=== PATIENT | male | born 1990 | race Caucasian/White ===

== ENCOUNTER 2017-08-26 12:20 | Emergency (ER) | payer OTHER ==
[2017-08-26] MEDS ORDERED: NS 0.9% 1000 ML* 1,000 ML IV ONE (12:56)
[2017-08-26] MEDS ORDERED: Ketorolac INJ* 30 MG/ML 1 ML VIAL IV PUSH ONE (12:57)
--- NOTE | 2017-08-26 14:03 | ED ---
GI/ HPI - HPI Summary HPI Summary: 27M presents with flank pain since Wednesday. He states the pain is over bilateral kidney. He admits to occasionally nausea and decrease in appetite. He denies any injury. He denies any fever. He denies any loss of bowel or bladder. He denies any saddle anaesthesia. He states on right side pain radiates to RUQ. He denies any vomiting, diarrhea or constipation. He has been taking tyenlol for pain. He denies any history of kidney stones. He saw his primary who scheduled an u/s in a month. - History of Current Complaint Chief Complaint: EDFlankPain Time Seen by Provider: 08/26/17 12:41 Stated Complaint: KIDNEY PAIN Pain Intensity: 8 - Allergy/Home Medications Allergies/Adverse Reactions: Allergies Allergy/AdvReac Type Severity Reaction Status Date / Time No Known Allergies Allergy Verified 08/26/17 12:51 PMH/Surg Hx/FS Hx/Imm Hx Endocrine/Hematology History: Denies: Hx Anticoagulant Therapy Cardiovascular History: Denies: Hx Hypertension Infectious Disease History: No Infectious Disease History: Denies: Traveled Outside the [place] in Last 30 Days - Family History Known Family History: Negative: Renal Disease - Social History Alcohol Use: None Substance Use Type: Reports: None Smoking Status (MU): Former Smoker Review of Systems Negative: Fever Negative: Chest Pain Negative: Shortness Of Breath Positive: Nausea. Negative: Abdominal Pain, Vomiting, Diarrhea Positive: flank pain All Other Systems Reviewed And Are Negative: Yes Physical Exam Triage Information Reviewed: Yes Vital Signs On Initial Exam: Initial Vitals Temp Pulse Resp BP Pulse Ox 98.9 F 67 18 148/94 98 08/26/17 12:29 08/26/17 12:29 08/26/17 12:29 08/26/17 12:29 08/26/17 12:29 Vital Signs Reviewed: Yes Appearance: Positive: Well-Appearing Skin: Positive: Warm, Dry Head/Face: Positive: Normal Head/Face Inspection Eyes: Positive: Normal, EOMI, LANA, Conjunctiva Clear ENT: Positive: Normal ENT inspection, Pharynx normal, TMs normal Respiratory/Lung Sounds: Positive: Clear to Auscultation, Breath Sounds Present Cardiovascular: Positive: Normal, RRR Abdomen Description: Positive: Soft, CVA Tenderness (R), CVA Tenderness (L), Other: - tenderness RUQ Bowel Sounds: Positive: Present Musculoskeletal: Positive: Normal Neurological: Positive: Normal Psychiatric: Positive: Normal - Robyn Coma Scale Coma Scale Total: 15 Diagnostics - Vital Signs Vital Signs Temp Pulse Resp BP Pulse Ox 08/26/17 12:50 72 96 08/26/17 12:49 131/87 08/26/17 12:29 98.9 F 67 18 148/94 98 - Laboratory Result Diagrams: 08/26/17 13:50 08/26/17 13:50 Lab Statement: Any lab studies that have been ordered have been reviewed, and results considered in the medical decision making process. - CT abd CT Interpretation: No Acute Changes CT Interpretation Completed By: Radiologist - Ultrasound No standard instances Ultrasound Interpretation: No Acute Changes Ultrasound Interpretation Completed By: Radiologist LUKE Course/Dx - Course Course Of Treatment: 27M presents with flank pain since Wednesday. He states the pain is over bilateral kidney. He admits to occasionally nausea and decrease in appetite. He denies any injury. He denies any fever. He denies any loss of bowel or bladder. He denies any saddle anaesthesia. He states on right side pain radiates to RUQ. He denies any vomiting, diarrhea or constipation. He has been taking tyenlol for pain. He denies any history of kidney stones. He saw his primary who scheduled an u/s in a month. on exam tenderness RUQ. CVA tenderness bilateral. u/s gallbladder normal. CT abd normal. labs normal. explained that do not have cause for pain but likely muscular. told to start use tyenlol and ibuprofen as has not been using anything. patient understand and agrees with plan. - Diagnoses Differential Diagnoses - Male: Gall Bladder Disease, Pyelonephritis, Ureteral Calculi, Urinary Tract Infection Provider Diagnoses: Flank pain Discharge - Discharge Plan Condition: Good Disposition: HOME Patient Education Materials: Flank Pain (ED) Forms: *Work Release Referrals: Susie Sawyer NP [Primary Care Provider] - Additional Instructions: Use ibuprofen or Tylenol for pain every 6 hours ice/heat area, move as much as possible Follow up with primary within 5 days Return to ED if develop any new or worsening symptoms
--- NOTE | 2017-08-26 14:03 | RAD ---
INDICATION: Right upper quadrant pain. COMPARISON: There are no prior studies available for comparison. TECHNIQUE: Multiple real-time images of the right upper quadrant were obtained. FINDINGS: The gallbladder appear normal. No gallbladder wall thickening or pericholecystic fluid is present. No intra or extrahepatic ductal distention is present. The common bile duct measured 0.2 cm in diameter. The liver is normal in size without significant focal abnormality. The pancreas is partially obscured by overlying bowel gas. The right kidney is normal in size without evidence for hydronephrosis. IMPRESSION: NEGATIVE EXAM.
[2017-08-26 14:06] LABS: Hematocrit 44 % (42-52); Mean Corpuscular HGB Conc 34 g/dl (31-36); Mean Corpuscular Hemoglobin 29 pg (27-31); Mean Corpuscular Volume 86 fL (80-94); Mean Platelet Volume 7 um3 (7.4-10.4); Red Cell Distribution Width 13 % (10.5-15); White Blood Count 6.4 10^3/ul (3.5-10.8)
[2017-08-26 14:19] LABS: Albumin 4.7 g/dL (3.2-5.2); BUN/Creatinine Ratio 14.7 (8-20); Calcium 9.7 mg/dL (8.6-10.3); EGFR African American 112.7 (>60); EGFR Non-African American 87.6 (>60); Globulin 2.6 g/dL (2-4); Potassium 4.3 mmol/L (3.5-5.0); Total Bilirubin 0.4 mg/dL (0.2-1.0); Total Protein 7.3 g/dL (6.4-8.9)
[2017-08-26 14:26] LABS: Urine Bacteria Absent (Absent); Urine Bilirubin Negative (Negative); Urine Glucose Negative (Negative); Urine Nitrite Negative (Negative)
--- NOTE | 2017-08-26 14:47 | RAD ---
CLINICAL HISTORY: Left flank pain COMPARISON: None TECHNIQUE: Multiple contiguous axial CT scans were obtained of the abdomen and pelvis, without intravenous contrast enhancement. Coronal and sagittal multiplanar reformations are submitted for review. Oral contrast was not administered. FINDINGS: The study is limited by the lack of intravenous contrast. This limits evaluation of the solid organs and vasculature. LUNG BASES: The lung bases are clear. LIVER: The liver is normal in shape, size, contour, and attenuation. BILE DUCTS: There is no intrahepatic or extrahepatic biliary dilatation. GALLBLADDER: The gallbladder is normal, without pericholecystic inflammatory change. PANCREAS: The pancreas is normal, without mass or ductal dilatation. SPLEEN: Normal in size and appearance. UPPER GI TRACT: Evaluation of the gastrointestinal tract is limited by incomplete gastric distention. The upper GI tract is unremarkable. SMALL BOWEL AND MESENTERY: The small bowel is normal in contour, course, and caliber. There is no obstruction or dilatation. COLON: The colon is normal in contour, course, caliber. There is no pericolonic inflammatory change. There is a tubular, vermiform, hollow viscus that is blind ending, and originates from the cecum, consistent with a normal appendix. There is no periappendiceal inflammatory change. This is best seen on axial image 103 through 121 ADRENALS: Normal bilaterally. KIDNEYS: The kidneys are normal in shape, size, contour, and axis. There is no hydronephrosis or nephrolithiasis. BLADDER: The bladder is smooth in contour. PELVIC ORGANS: The prostate gland is normal. The seminal vesicles are symmetric. AORTA: The aorta is normal. IVC: Unremarkable LYMPH NODES: There is no lymphadenopathy by size criteria. ABDOMINAL WALL: There is no evidence for abdominal wall hernia. BONES AND SOFT TISSUES: Unremarkable OTHER: None IMPRESSION: NO HYDRONEPHROSIS OR NEPHROLITHIASIS. NO ACUTE NONCONTRAST CT PATHOLOGY OF THE VISUALIZED ABDOMEN OR PELVIS.
[2017-08-26 15:28] VITALS: BP 119/60
== END 2017-08-26 15:15 | disposition home or self-care (01) ==
LOC: ED 12:20
DX: R10.84 Generalized abdominal pain (principal); R11.0 Nausea; Z87.891 Personal history of nicotine dependence
CPT/HCPCS: 36415; 74176; 76705; 80053; 81003; 81015; 83690; 85025; 86141; 99283; J1885